=== PATIENT | female | born 1945 | race Caucasian/White ===

== ENCOUNTER 2017-09-22 12:43 | Inpatient (IN) | payer MEDICARE, MEDICAID ==
[~2017-09-22] VITALS: Ht 165.1 cm; Wt 59.4 kg
[~2017-09-22 12:43] MED LIST: ALBU8.5H8 IH; HYDR-3024 PO; HYDR12.5 PO; LISI40TA4 PO; PANT40TA2 PO; SUCR1ORA PO; sertraline PO
--- NOTE | 2017-09-22 12:49 | NUR ---
CALLED RETAIL COVERAGE MERCHANDISER LEAD FOR SITTER. SITTER WILL BE PROVIDED AT 1500. SISTER AT BEDSIDE FOR NOW.
[2017-09-22 13:33] LABS: BASOPHILS # (AUTO) 0.1 K/uL (0.0-8.0); BASOPHILS % (AUTO) 1.1 % (0.0-2.0); EOSINOPHILS # (AUTO) 0.1 K/uL (0.0-0.7); EOSINOPHILS % (AUTO) 0.5 % (0.0-7.0); HEMATOCRIT 39.9 % (31.2-41.9); HEMOGLOBIN 13.5 g/dL (10.9-14.3); LYMPHOCYTES # (AUTO) 1.6 K/uL (20.0-40.0); LYMPHOCYTES % (AUTO) 12.9 % (20.5-51.5); MEAN CORPUSCULAR HGB CONC 34 g/dL (32.3-35.6); MEAN CORPUSCULAR VOLUME 85.6 fL (75.5-95.3); MONOCYTES # (AUTO) 1.3 K/uL (2.0-10.0); MONOCYTES % (AUTO) 10.6 % (0.0-11.0); NEUTROPHILS # (AUTO) 9.4 K/uL (1.8-8.9); NEUTROPHILS % (AUTO) 74.9 % (38.5-71.5); PLATELET COUNT (AUTO) 480 K/uL (179-408); RED BLOOD CELL COUNT(AUTO) 4.66 MIL/uL (3.63-4.92); WHITE BLOOD COUNT (AUTO) 12.6 K/uL (3.8-11.8)
[2017-09-22 13:38] LABS: CARBON DIOXIDE 28 mmol/L (21-32); CHLORIDE 100 mmol/L (98-107); CREATININE 1.2 mg/dL (0.6-1.3); GLUCOSE 107 mg/dL (74-106); POTASSIUM 3.9 mmol/L (3.5-5.1); UREA NITROGEN, BLOOD 4 mg/dL (7-18)
[2017-09-22 13:39] LABS: *BLOOD, URINE NEGATIVE (NEGATIVE); *CLARITY,URINE CLOUDY (CLEAR); *COLOR,URINE DARK YELLOW (YELLOW); *KETONES,URINE TRACE (NEGATIVE); *PROTEIN,URINE 2+ (NEGATIVE); *UROBILINOGEN,URINE 0.2 E.U./dl (NORMAL); LEUKOCYTE ESTERASE ,URINE NEGATIVE (NEGATIVE); NITRITE, URINE NEGATIVE (NEGATIVE); PH,URINE 5.5 (5.0-8.0); UGLUCOSE NEGATIVE (NEGATIVE)
[2017-09-22 13:43] LABS: ACETAMINOPHEN < 2.0 ug/mL (10-30); ALANINE AMINOTRANSFERASE 15 U/L (14-59); ALKALINE PHOSPHATASE 125 U/L (50-136); ASPARTATE AMINOTRANSFERASE 20 U/L (15-37); BILIRUBIN,DIRECT 0.1 mg/dL (0.0-0.2); BILIRUBIN,TOTAL 0.3 mg/dL (0.2-1.0); TOTAL PROTEIN, SERUM 7.3 g/dL (6.4-8.2)
[2017-09-22 13:48] LABS: ETHANOL < 3 MG/DL (0-0)
[2017-09-22 13:55] LABS: *BILIRUBIN,URIN 2+ (NEGATIVE)
[2017-09-22 13:57] LABS: BACTERIA,URINE MANY /HPF (NONE SEEN); MUCUS,URINE FEW /LPF (0-FEW); RBC,URINE 0-3 /HPF (0-3); SQUAMOUS EPITHELIAL CELL,UR MANY /HPF (NONE SEEN)
[2017-09-22 14:04] LABS: *AMPHETAMINE, URINE NEGATIVE (NEGATIVE); *BARBITURATE, URINE NEGATIVE (NEGATIVE); *CANNABINOID, URINE NEGATIVE (NEGATIVE); *COCCAINE, URINE NEGATIVE (NEGATIVE); *OPIATE, URINE NEGATIVE (NEGATIVE); *PHENCYCLIDINE SCREEN,URINE NEGATIVE (NEGATIVE)
--- NOTE | 2017-09-22 14:42 | NUR ---
PT MEDICALLY CLEARED TALKED TO VELMA KEE OVER FOR PSYCH EVAL.
--- NOTE | 2017-09-22 15:06 | NUR ---
VELMA KEE AT BEDSIDE TO EVALUATE THE PT
[2017-09-22] MEDS ORDERED: FLUT1BLS IH (15:14)
[2017-09-22] MEDS ORDERED: LORA-258 PO (15:14)
[2017-09-22] MEDS ORDERED: PRED50TA PO (15:14)
[2017-09-22] MEDS ORDERED: METO25TA6 PO (15:14)
[2017-09-22] MEDS ORDERED: HYDR-3326 PO (15:14)
[2017-09-22] MEDS ORDERED: ACET325T53 PO (15:14)
[2017-09-22] MEDS ORDERED: FLUT1DIS28 IH (15:14)
[2017-09-22] MEDS ORDERED: ALBU8.5H8 IH (15:14)
[2017-09-22] MEDS ORDERED: BUPR150T10 PO (15:14)
[2017-09-22] MEDS ORDERED: LIDOCAINE HCL 1% 20 ML VIAL ONE (15:29)
[2017-09-22] MEDS ORDERED: CEFTRIAXONE 1 G VIAL ONE (15:29)
[2017-09-22 15:30] VITALS: BP 137/74
[2017-09-22] MEDS: CEFTRIAXONE 1 G VIAL IM SCH ×2 (15:30→15:36)
--- NOTE | 2017-09-22 15:34 | NUR ---
PT TRANSFERED TO MHU IN STABLE CONDITION.
[2017-09-22 16:04] VITALS: BP 137/74
[2017-09-22] MEDS ORDERED: LORAZEPAM 0.5 MG TABLET PO PRN (16:30)
[2017-09-22] MEDS ORDERED: ACETAMINOPHEN 325 MG TABLET PO PRN (16:30)
[2017-09-22] MEDS ORDERED: MAGNESIUM HYDROXIDE 30 ML LIQUID UDC PO PRN (16:30)
--- NOTE | 2017-09-22 17:50 | NUR ---
GPS/RN- DR POSEY NOTIFIED OF PATIENT HIGH RISK BEHAVIOR, LIVES ALONE MANAGES OWN CARE AND MEDICATIONS, PATIENT REQUIRES PLACEMENT FOR A SAFER DISCHARGE. Addendum: 09/22/17 at 1753 by GUILHERME RIZO RN Amended: Links added.
--- NOTE | 2017-09-22 19:22 | NUR ---
GPS/RN- ADMISSION NOTE Patient admitted for 5150 for Danger to Self, per 5150 patient made small lacs to left forearm and elbow and told staff at her [facility] outpatient program of her suicide gesture. patient acknowledges severe depression and wants treatment. Patient is alert and oriented to self, knows she is in a hospital, partially to time however patient is forgetful during assessment and history, patient lives alone and takes care of herself and medication management, patient verbalized suicide attempt but verbalized she will not hurt herself here, able to contract for safety able to verbalize needs and feelings. patient is unkept, presents depressed and elated, incongruent mood, superficial guarded. Verbalized depressed for a very long time, verbalized one suicide attempt prior, noted with healed scar on left wrist, patient unable to recall other facts, able to ambulate with a walker and supervision. patient not aggressive, denies any hallucinations. current smoker, Nicotene orders in place. Advised of 72 hour hold status and patient rights, family notified. Dr Grady and [facility] notified of patient admit. High risk for failure due to depression living alone and poor historian, recommend placement, psychiatrist aware.
[2017-09-22 19:30] VITALS: BP 139/76
[2017-09-22] MEDS: risperiDONE 0.25 MG TABLET PO SCH (21:08)
--- NOTE | 2017-09-22 22:00 | NUR ---
received to care, lying in bed, pleasant upon approach. denies si at this time. admitted to suicide attempt. agreed to let staff know if she feels like hurting her self. compliant with medications, and staff direction. as of 2199, she remains awake, in bed. seems slightly confused. forgot why she was admitted to the hospital. reality orientation/emotional support provided. no distress noted. will continue to monitor closely.
[2017-09-22] MEDS: TEMAZEPAM 7.5 MG CAPSULE PO PRN (22:59)
--- NOTE | 2017-09-22 22:59 | NUR ---
remains awake. PRN restoril, given for insomnia.
--- NOTE | 2017-09-22 23:40 | NUR ---
appears to be asleep. no distress noted.
--- NOTE | 2017-09-23 06:00 | NUR ---
slept 6.0 hours, total. continues to sleep. no distress noted.
[2017-09-23 08:00] VITALS: BP_SYST 109; BP_SYST 142; BP_DIAS 70; BP_DIAS 71
[2017-09-23] MEDS: ESCITALOPRAM OXALATE 10 MG TABLET PO SCH (09:12)
[2017-09-23] MEDS: NICOTINE 14 MG/24HR PATCH TD SCH (09:12)
--- NOTE | 2017-09-23 15:44 | NUR ---
Initial DC Plan: Patient currently lives home alone [[address] [address]; [phone]]. Patient's son Carl [[phone]] feels that patient should be living at home type of facility. SW will follow up with MD, patient, and patient's family to discuss most appropriate discharge plans. SW will form a safe and proper discharge.
--- NOTE | 2017-09-23 15:51 | NUR ---
Firearms Report: LUIS submitted Mental Health Report to [facility] on 09/23.
[2017-09-23 16:00] VITALS: BP 152/66
[2017-09-23] MEDS: CEPHALEXIN MONOHYDRATE 500 MG CAPSULE PO SCH ×2 (17:18→21:49)
[2017-09-23] MEDS: METOPROLOL TARTRATE 25 MG TABLET PO SCH (17:19)
--- NOTE | 2017-09-23 17:54 | NUR ---
Gps/Associate Merchandiser- Had late shower, ASSISTANT MEN'S SOCCER COACH assisting, occ. dry coughing noted. Ambulated with front wheel walker, showed how to use fww, tends to carry adaptive device. Had been cooperative with staff, pleasant affect, smiles on occ. Encouraged continued verbalizations of her needs and feeling.
[2017-09-23] MEDS: risperiDONE 0.25 MG TABLET PO SCH (20:18)
[2017-09-23 20:50] VITALS: BP 144/61
[2017-09-23] MEDS: TEMAZEPAM 7.5 MG CAPSULE PO PRN (21:50)
--- NOTE | 2017-09-23 22:00 | NUR ---
received to care, lying in bed, pleasant , but confused, and forgetful. denies SI, or desire to harm self. had to be reminded of the suicide attempt, as she forgot why she was here. believed she was in her bed, at home. frequent reality orientation provided, but remains forgetful. also believed she saw her cat, ambulating in the hallway, stating, " be careful you don't let my cat out the door". PRN restoril was given at 0, for insomnia. as of 2199, she remains awake, in bed, eating a snack. she asked "am i in the hospital ? boy, am i confused" no distress noted. will continue to monitor closely.
--- NOTE | 2017-09-23 23:00 | NUR ---
appears to be asleep. no distress noted.
--- NOTE | 2017-09-24 06:00 | NUR ---
slept 6.5 hours, total. continues to sleep. no distress noted.
[2017-09-24] MEDS: CEPHALEXIN MONOHYDRATE 500 MG CAPSULE PO SCH ×3 (06:34→21:17)
[2017-09-24 07:30] VITALS: BP 139/57
[2017-09-24] MEDS: predniSONE 50 MG TABLET PO SCH (08:12)
[2017-09-24] MEDS: ESCITALOPRAM OXALATE 10 MG TABLET PO SCH (08:12)
[2017-09-24] MEDS: METOPROLOL TARTRATE 25 MG TABLET PO SCH ×2 (08:14→16:40)
[2017-09-24] MEDS: NICOTINE 14 MG/24HR PATCH TD SCH (08:14)
[2017-09-24] MEDS: FLUTICASONE/VILANTEROL 1 EACH BLST.W.DEV IH SCH (08:31)
[2017-09-24] MEDS ORDERED: FLUTICASONE/SALMETEROL 250/50 INHALER IH SCH (09:00)
[2017-09-24 15:44] VITALS: BP 123/68
--- NOTE | 2017-09-24 17:53 | NUR ---
Gps/Senior Database Engineer- Noted confusion and disorientation , encouraged using front wheel walker when walking, safety reviewed and emphasized, kept removing her socks claimed too hot. Came out asking to smoke, informed patient and showed patient she has a nicotine patch on her left upper arm, and this is none smoking hospital, verbalized understanding .
[2017-09-24] MEDS: risperiDONE 0.25 MG TABLET PO SCH (20:29)
[2017-09-24 21:24] VITALS: BP 131/81
[2017-09-25] MEDS: CEPHALEXIN MONOHYDRATE 500 MG CAPSULE PO SCH ×3 (05:48→21:03)
--- NOTE | 2017-09-25 06:10 | NUR ---
GPS: Remain calm and cooperative with medications and care. ambulate to bathroom with steady gait. no agitation noted. pleasant upon approach.slept only 2 hrs through the night. restoril offered but patient stated i am fine. continue monitoring for safety.
[2017-09-25 07:30] VITALS: BP 147/58
[2017-09-25] MEDS: NICOTINE 14 MG/24HR PATCH TD SCH (09:13)
[2017-09-25] MEDS: predniSONE 50 MG TABLET PO SCH (09:13)
[2017-09-25] MEDS: METOPROLOL TARTRATE 25 MG TABLET PO SCH ×2 (09:13→17:00)
[2017-09-25] MEDS: ESCITALOPRAM OXALATE 10 MG TABLET PO SCH (09:13)
[2017-09-25] MEDS: FLUTICASONE/VILANTEROL 1 EACH BLST.W.DEV IH SCH (09:14)
[2017-09-25 17:05] VITALS: BP 102/63
[2017-09-25 20:00] VITALS: BP 111/51
--- NOTE | 2017-09-25 21:00 | NUR ---
RECEIVED PT AWAKE, ALERT, ORIENTEDX2. PT SHOWS NO SIGNS OF DISTRESS. PT ITCHY. GAVE WET TOWEL FOR HER TO EASE ITCHINESS ON HER RIGHT LEG. COOPERATIVE AND CALM . WILL CONTINUE TO MONITOR.
[2017-09-25] MEDS: risperiDONE 0.25 MG TABLET PO SCH (21:03)
[2017-09-26] MEDS: CEPHALEXIN MONOHYDRATE 500 MG CAPSULE PO SCH ×3 (06:14→21:01)
--- NOTE | 2017-09-26 06:43 | NUR ---
PT SLEPT THROUGHOUT THE SHIFT. PT SHOWS NO SIGNS OF DISTRESS. PT CALM AND COOPERATIVE. PT HAD NO SUICIDAL IDEATION. COMPLIANT WITH MEDICATIONS.SAFETY AND COMFORT PROVIDED. WILL ENDORSE TO DAYSHIFT NURSE.
[2017-09-26 07:10] LABS: *BILIRUBIN,URIN NEGATIVE (NEGATIVE); *BLOOD, URINE NEGATIVE (NEGATIVE); *CLARITY,URINE CLEAR (CLEAR); *COLOR,URINE YELLOW (YELLOW); *KETONES,URINE NEGATIVE (NEGATIVE); *PROTEIN,URINE NEGATIVE (NEGATIVE); *UROBILINOGEN,URINE 0.2 E.U./dl (NORMAL); LEUKOCYTE ESTERASE ,URINE NEGATIVE (NEGATIVE); NITRITE, URINE NEGATIVE (NEGATIVE); UGLUCOSE NEGATIVE (NEGATIVE)
[2017-09-26 07:30] VITALS: BP 146/57
[2017-09-26 07:31] LABS: BACTERIA,URINE NONE SEEN /HPF (NONE SEEN); RBC,URINE 0-3 /HPF (0-3); WBC,URINE 0-3 /HPF (0-3)
[2017-09-26 07:32] LABS: SQUAMOUS EPITHELIAL CELL,UR FEW /HPF (NONE SEEN)
[2017-09-26] MEDS: FLUTICASONE/VILANTEROL 1 EACH BLST.W.DEV IH SCH (09:18)
[2017-09-26] MEDS: METOPROLOL TARTRATE 25 MG TABLET PO SCH ×2 (09:19→16:56)
[2017-09-26] MEDS: predniSONE 50 MG TABLET PO SCH (09:19)
[2017-09-26] MEDS: ESCITALOPRAM OXALATE 10 MG TABLET PO SCH (09:19)
[2017-09-26] MEDS: NICOTINE 14 MG/24HR PATCH TD SCH (09:20)
[2017-09-26] MEDS: HYDROCODONE/APAP 5-325MG TABLET PO PRN (14:02)
[2017-09-26 15:27] VITALS: BP 147/50
[2017-09-26 20:00] VITALS: BP 136/54
--- NOTE | 2017-09-26 20:30 | NUR ---
RECEIVED PT AWAKE, ALERT, ORIENTEDX2. PT TRYING TO ASK FOR HER PURSE AND OTHER BELONGINGS. REITERATE THAT ITS IN A SAFE PLACE. PT SHOWS NO SIGNS OF DISTRESS. PT SAYING ITS TOO COLD. GAVE HER MORE BLANKET. REEDUCATE AND REITERATE TO PT TO USE HER WALKER WHEN WALKING. SAFETY PROVIDED. WILL CONTINUE TO MONITOR.
[2017-09-26] MEDS: risperiDONE 0.25 MG TABLET PO SCH (20:55)
[2017-09-26] MEDS: TEMAZEPAM 7.5 MG CAPSULE PO PRN (20:58)
--- NOTE | 2017-09-27 05:47 | NUR ---
PT SLEPT THROUGHOUT THE SHIFT. AT 0300H PT AWAKE BECAUSE SHE WENT TO THE BATHROOM. ASSISTED HER TO THE BATHROOM. PT WET HER BED. CHANGE THE LINEN AND HER GOWN. PT CRYING AND THANKING US FOR WHAT WE DID. PT SHOWS NO SIGNS OF DISTRESS. COMPLIANT WITH MEDICATION. SAFETY PROVIDED. WILL ENDORSE TO DAYSHIFT NURSE.
[2017-09-27] MEDS: CEPHALEXIN MONOHYDRATE 500 MG CAPSULE PO SCH ×3 (06:41→21:03)
[2017-09-27 07:30] VITALS: BP 143/54
[2017-09-27] MEDS: ESCITALOPRAM OXALATE 10 MG TABLET PO SCH (08:31)
[2017-09-27] MEDS: FLUTICASONE/VILANTEROL 1 EACH BLST.W.DEV IH SCH (08:31)
[2017-09-27] MEDS: METOPROLOL TARTRATE 25 MG TABLET PO SCH ×2 (08:32→16:39)
[2017-09-27] MEDS: NICOTINE 14 MG/24HR PATCH TD SCH (08:32)
[2017-09-27] MEDS: predniSONE 50 MG TABLET PO SCH (08:32)
[2017-09-27 16:30] VITALS: BP 138/55
[2017-09-27] MEDS: MAG HYDROX/AL HYDROX/SIMETH 30 ML LIQUID UDC PO PRN (18:51)
[2017-09-27 19:30] VITALS: BP 106/58
--- NOTE | 2017-09-27 20:00 | NUR ---
RECEIVED PATIENT IN HER ROOM IN BED, SHE IS NOTED AWAKE A/O X 1. ABLE TO AMBULATE WITH STEADY GAIT AND ABLE TO MAKE HER NEEDS KNOW. UPON INTERVIEW, PATIENT STATED, YES, I SOMETIME, HAVE SI, BUT WHEN I THINK OF MY FAMILY MY SON AND ALL THE PAIN I COULD CAUSED IF I DO SOMETHING TO ME, THEN I DON'T THINK ABOUT IT". PATIENT NOTED WITH LOW MOOD, FAIR INSIGHT INTO THE REASON FOR HIS ADMISSION TO MHU. SHE IS ABLE TO CFS. SAFETY WAS EMPHASIS. WILL CONTINUE TO MONITOR CLOSELY.
[2017-09-27] MEDS: risperiDONE 0.25 MG TABLET PO SCH (20:52)
[2017-09-28] MEDS: CEPHALEXIN MONOHYDRATE 500 MG CAPSULE PO SCH ×2 (06:19→14:05)
--- NOTE | 2017-09-28 06:53 | NUR ---
PATIENT SLEPT FOR APPROX 8.00 HRS THROUGH THE NIGHT. CONTINUE COMPLIANT WITH MEDICATION REGIMENT. ABLE TO CFS
[2017-09-28 07:20] LABS: EOSINOPHILS % (AUTO) 0.2 % (0.0-7.0); HEMOGLOBIN 11.9 g/dL (10.9-14.3)
[2017-09-28 07:30] VITALS: BP 146/62
[2017-09-28 07:30] LABS: BASOPHILS % (AUTO) 0.3 % (0.0-2.0); HEMATOCRIT 34.9 % (31.2-41.9); LYMPHOCYTES # (AUTO) 2.9 K/uL (20.0-40.0); LYMPHOCYTES % (AUTO) 17.4 % (20.5-51.5); MEAN CORPUSCULAR HEMOGLOBIN 29.3 uug (24.7-32.8); MEAN CORPUSCULAR HGB CONC 34 g/dL (32.3-35.6); MEAN CORPUSCULAR VOLUME 85.7 fL (75.5-95.3); MONOCYTES % (AUTO) 11.9 % (0.0-11.0); NEUTROPHILS # (AUTO) 11.8 K/uL (1.8-8.9); NEUTROPHILS % (AUTO) 70.2 % (38.5-71.5); PLATELET COUNT (AUTO) 373 K/uL (179-408); RED BLOOD CELL COUNT(AUTO) 4.07 MIL/uL (3.63-4.92)
[2017-09-28 07:32] LABS: CARBON DIOXIDE 31 mmol/L (21-32); CHLORIDE 100 mmol/L (98-107); GLUCOSE 64 mg/dL (74-106); PHOSPHOROUS 2.2 mg/dL (2.5-4.9); POTASSIUM 3.7 mmol/L (3.5-5.1); UREA NITROGEN, BLOOD 15 mg/dL (7-18)
[2017-09-28 07:36] LABS: WHITE BLOOD COUNT (AUTO) 16.9 K/uL (3.8-11.8)
[2017-09-28] MEDS: ESCITALOPRAM OXALATE 10 MG TABLET PO SCH (08:35)
[2017-09-28] MEDS: METOPROLOL TARTRATE 25 MG TABLET PO SCH ×2 (08:35→16:37)
[2017-09-28] MEDS: NICOTINE 14 MG/24HR PATCH TD SCH (08:35)
[2017-09-28] MEDS: predniSONE 50 MG TABLET PO SCH (08:37)
[2017-09-28] MEDS: FLUTICASONE/VILANTEROL 1 EACH BLST.W.DEV IH SCH (08:38)
[2017-09-28] MEDS ORDERED: NEUTRA PHOS PACKET PO ONE (15:30)
[2017-09-28 16:27] VITALS: BP 118/50
[2017-09-28 19:50] VITALS: BP 141/55
--- NOTE | 2017-09-28 19:50 | NUR ---
RECEIVED PATIENT IN HER ROOM SITTING IN BED EATING. SHE IS NOTED AWAKE A/O X 2. CONFUSED AT TIMES. SHE IS ABLE TO AMBULATE WITH STEADY GAIT AND ABLE TO MAKE HER NEEDS KNOW. UPON INTERVIEW, PATIENT STATED THAT HIS SON CAME TO VISIT AND HE NOW REALIZED THAT KILLING HERSELF COULD HAVE BEEN UPSET HIS SON AND CAUSED SO MUCH PAIN. SHE IS ABLE TO CFS. DENIES SI/AH/VA/HI. SAFETY WAS EMPHASIS. WILL CONTINUE TO MONITOR CLOSELY.
[2017-09-28] MEDS: risperiDONE 0.5 MG TABLET PO SCH (20:07)
[2017-09-28] MEDS ORDERED: risperiDONE 0.25 MG TABLET PO SCH (21:00)
--- NOTE | 2017-09-29 02:55 | NUR ---
PATIENT NOTED AWAKE STANDING UP NEXT TO HER BED, HER PANTS AND SOCKS WERE WET AND HER BED WAS ALSO WET. PATIENT NOTED MILDLY AGITATED AND CONFUSED, SHE STATED, "I SHOULD JUST , I SHOULD BE ". PATIENT WAS REASSURED, WAS TAKEN TO THE SHOWER. ATIVAN 0.5MG PO PRN WAS GIVEN AND WAS HELPED BACK TO BED. WILL CONTINUE TO MONITOR.
--- NOTE | 2017-09-29 04:00 | NUR ---
PATIENT NOTED SLEEPING COMFORTABLY IN HER BED. WILL CONTINUE TO MONITOR.
--- NOTE | 2017-09-29 06:58 | NUR ---
PATIENT SLEPT FOR APPROX 9.30 HRS THROUGH THE NIGHT. CONTINUE COMPLIANT WITH MEDICATION REGIMENT, DIET AND PLAN OF CARE. CONTINUE TO MONITOR CLOSELY.
[2017-09-29] MEDS: METOPROLOL TARTRATE 25 MG TABLET PO SCH ×2 (07:53→16:40)
[2017-09-29] MEDS: HYDROCODONE/APAP 5-325MG TABLET PO PRN (07:53)
[2017-09-29] MEDS: NICOTINE 14 MG/24HR PATCH TD SCH (07:53)
[2017-09-29] MEDS: ESCITALOPRAM OXALATE 10 MG TABLET PO SCH (07:53)
[2017-09-29] MEDS: FLUTICASONE/VILANTEROL 1 EACH BLST.W.DEV IH SCH (07:53)
[2017-09-29] MEDS: predniSONE 50 MG TABLET PO SCH (07:53)
[2017-09-29 08:00] VITALS: BP 172/73
[2017-09-29 10:55] VITALS: BP 135/52
[2017-09-29 16:00] VITALS: BP 117/52
[2017-09-29 20:18] VITALS: BP 155/65
[2017-09-29] MEDS: risperiDONE 0.5 MG TABLET PO SCH (20:29)
[2017-09-30 07:30] VITALS: BP 125/60
--- NOTE | 2017-09-30 07:30 | NUR ---
RECEIVED A 72 Y/O FEMALE PT, ALERT O X2. LYING IN BED, SEEMS TO BE CALM AND PLEASANT, WALKS WITH HELP, NEEDS FREQUENT REALITY ORIENTATION, DENIES SUICIDAL IDEAS.
[2017-09-30] MEDS: ESCITALOPRAM OXALATE 10 MG TABLET PO SCH (08:30)
[2017-09-30] MEDS: NICOTINE 14 MG/24HR PATCH TD SCH (08:30)
[2017-09-30] MEDS: METOPROLOL TARTRATE 25 MG TABLET PO SCH ×2 (08:30→17:39)
[2017-09-30] MEDS: FLUTICASONE/VILANTEROL 1 EACH BLST.W.DEV IH SCH (08:55)
[2017-09-30] MEDS: predniSONE 50 MG TABLET PO SCH (08:55)
--- NOTE | 2017-09-30 08:59 | NUR ---
PT RECEIVED BREAKFAST, GOOD APPETITE, WAS COMPLIANT WITH ALL HER DUE MEDICATIONS.
[2017-09-30 16:25] VITALS: BP 132/60
--- NOTE | 2017-09-30 19:26 | NUR ---
PT FULL REPORT GIVEN TO SYLVIA PSYCH
[2017-09-30] MEDS: risperiDONE 0.5 MG TABLET PO SCH (20:14)
[2017-09-30 21:21] VITALS: BP 134/60
[2017-10-01] MEDS: HYDROCODONE/APAP 5-325MG TABLET PO PRN (02:45)
--- NOTE | 2017-10-01 06:49 | NUR ---
GPS: REMAIN CALM AND COOPERATIVE WITH MEDICATIONS AND CARE. PAIN MEDICATION GIVEN X1 AND EFFECTIVE. INCONTINENT X1 LAST NIGHT. ASSISTED WITH ADL'S. PATIENT SLEPT FOR APPROX 5.30 HRS THROUGH THE NIGHT. CONTINUE COMPLIANT WITH MEDICATION REGIMENT, DIET AND PLAN OF CARE. CONTINUE TO MONITOR CLOSELY FOR SAFETY.
[2017-10-01 07:30] VITALS: BP 129/59
--- NOTE | 2017-10-01 07:43 | NUR ---
REPORT RECEIVED FROM ROSALINDA WARD.
[2017-10-01] MEDS: ESCITALOPRAM OXALATE 10 MG TABLET PO SCH (08:35)
[2017-10-01] MEDS: NICOTINE 14 MG/24HR PATCH TD SCH (08:36)
[2017-10-01] MEDS: METOPROLOL TARTRATE 25 MG TABLET PO SCH (08:36)
[2017-10-01] MEDS: predniSONE 50 MG TABLET PO SCH (08:36)
[2017-10-01] MEDS: FLUTICASONE/VILANTEROL 1 EACH BLST.W.DEV IH SCH (08:38)
[2017-10-01] MEDS: MAG HYDROX/AL HYDROX/SIMETH 30 ML LIQUID UDC PO PRN (08:49)
--- NOTE | 2017-10-01 09:08 | NUR ---
PATIENT IS IN ROOM RESTING. PATIENT APOLOGETIC THAT IS NOT PARTICIPATING IN THE DAY ROOM. STATES THAT SHE LIKES TO PARTICIPATE IN ACTIVITIES BUT SHE IS HAVING STOMACH DISCOMFORT. GIVEN PRN MEDICATION FOR UPSET STOMACH. TAKEN PATIENT TO BATHROOM USED WALKER PATIENT HAS UNSTEADY GAIT. PATIENT ALSO COMPLAINING OF BACK PAIN. PATIENT WEARING DIAPER WAS INCONTINENT OVER NIGHT.
--- NOTE | 2017-10-01 10:36 | NUR ---
DC Note: Patient will be discharged to [facility] [[address] [place] [address]; ] via private transportation. LUIS spoke with patient's son aCrl Weaver [[phone]] who stated he will transport patient to the facility. Patient is aware and agreeable to discharge plans. Patient denies SI and HI. LUIS spoke with Venkata at [facility] who confirmed they can accept patient at the facility today. Patient will follow up with Dr. Segundo (Dental Equipment Technician) and Dr. Grady (Psychiatrist) at the facility. Patient was provided smoking cessation referrals for [place] [employer] [id number]-[id number] and [employer] [phone].
--- NOTE | 2017-10-01 13:02 | NUR ---
Updated DC Note: Patient was going to be discharged to [facility] [[phone]]. However, patient's son Carl Weaver [[phone]] decided he would rather care for patient at home. Patient will be moving in with her son Carl [[address] [place] [address]]. Patient's son stated he will orange picking supervisor patient around 3pm today. Patient is aware and agreeable to discharge plans. Patient denies SI and HI, and is calm and cooperative. Patient will follow up with her electrical wirer Dr. Venkata Flanagan [[address], [place] [address]; ] and psychiatrist Dr. Grady [[address] [place] [address]; ]. Patient's son stated he will schedule an appointment with [facility] to resume IOP services for patient. Patient will follow up with her outpatient social services counselor Anat Arias LCSW at [facility] [ [place] [address]; [phone]]. Patient was provided with additional outpatient mental health resources to [facility] , Ariana Mauro , and the National Suicide Prevention Lifeline . LUIS arranged Home Health for patient through [facility] [[phone]]. LUIS spoke with Julio at [facility] who stated services will begin for patient on WednesdayOctober 04. The home health agency will contact patient's son to arrange a time. Patient was also provided caregiving referrals for [facility] [[phone]] and [facility] [[phone]]. Patient was also referred to placement agency [facility] [[phone]].
--- NOTE | 2017-10-01 14:37 | NUR ---
WAITING FOR ALEXANDER NICOLAS NP TO WRITE DISCHARGE PRESCRIPTIONS DUE TO CHANGE OF DISCHARGE. DISCHARGING HOME WITH SON.
[2017-10-01 15:43] VITALS: BP 112/49
--- NOTE | 2017-10-01 16:56 | NUR ---
SON CAME TO LEAD NURSE PATIENT. BOTH SON AND PATIENT WERE EXPLAINED THE DISCHARGE INSTRUCTIONS AND SIGNED. DISCHARGE INSTRUCTIONS WERE COPIED AND PLACED IN CHART. BELONGINGS WERE REVIEWED AND RETURNED TO PATIENT UPON DISCHARGED.
== END 2017-10-01 17:02 | disposition home or self-care (01) | DRG 885 ==
LOC: ER 12:47 → GPS 15:17
PROVIDERS: ADMIT Psychiatry & Neurology Psychiatry; ATTEND Nurse Practitioner Acute Care
DX: F33.3 Major depressive disorder, recurrent, severe with psychotic symptoms (principal); N39.0 Urinary tract infection, site not specified; E44.1 Mild protein-calorie malnutrition; E87.1 Hypo-osmolality and hyponatremia; F03.91 Unspecified dementia, unspecified severity, with behavioral disturbance; F41.9 Anxiety disorder, unspecified; J44.9 Chronic obstructive pulmonary disease, unspecified; E88.09 Other disorders of plasma-protein metabolism, not elsewhere classified; G89.29 Other chronic pain; J45.909 Unspecified asthma, uncomplicated; I10 Essential (primary) hypertension; E78.1 Pure hyperglyceridemia; D72.829 Elevated white blood cell count, unspecified; F29 Unspecified psychosis not due to a substance or known physiological condition; Z68.21 Body mass index [BMI] 21.0-21.9, adult; Z91.5 Personal history of self-harm
CPT/HCPCS: 36415; 71045; 80307; 83735; 84100; 85025; 87086; 93005; A4663; G0480; G0480-TC; J0696; J3490; J7512

== ENCOUNTER 2017-10-05 15:58 | Inpatient (IN) | payer MEDICARE, MEDICAID ==
[~2017-10-05] VITALS: Ht 157.5 cm; Wt 58.5 kg
[~2017-10-05 15:58] MED LIST changes: +FLUT1BLS IH; +FLUT1DIS28 IH; -HYDR-3024 PO; +HYDR-3326 PO; -HYDR12.5 PO; -LISI40TA4 PO; +METO25TA6 PO; -PANT40TA2 PO; +PRED50TA PO; -SUCR1ORA PO; -sertraline PO
[2017-10-05] MEDS ORDERED: KETOROLAC TROMETHAMINE 15 MG INJ IM ONE (16:30)
[2017-10-05] MEDS ORDERED: KETOROLAC TROMETHAMINE 15 MG INJ ONE (16:37)
[2017-10-05 16:40] LABS: BASOPHILS # (AUTO) 0.2 K/uL (0.0-8.0); BASOPHILS % (AUTO) 0.7 % (0.0-2.0); EOSINOPHILS # (AUTO) 0.1 K/uL (0.0-0.7); EOSINOPHILS % (AUTO) 0.4 % (0.0-7.0); HEMATOCRIT 37.4 % (31.2-41.9); HEMOGLOBIN 12.5 g/dL (10.9-14.3); LYMPHOCYTES # (AUTO) 0.9 K/uL (20.0-40.0); LYMPHOCYTES % (AUTO) 4.1 % (20.5-51.5); MEAN CORPUSCULAR HGB CONC 34 g/dL (32.3-35.6); MEAN CORPUSCULAR VOLUME 86.6 fL (75.5-95.3); MONOCYTES # (AUTO) 1.1 K/uL (2.0-10.0); MONOCYTES % (AUTO) 4.9 % (0.0-11.0); NEUTROPHILS # (AUTO) 19.9 K/uL (1.8-8.9); NEUTROPHILS % (AUTO) 89.9 % (38.5-71.5); PLATELET COUNT (AUTO) 307 K/uL (179-408); RED BLOOD CELL COUNT(AUTO) 4.32 MIL/uL (3.63-4.92); WHITE BLOOD COUNT (AUTO) 22.1 K/uL (3.8-11.8)
[2017-10-05 17:01] LABS: CARBON DIOXIDE 29 mmol/L (21-32); CHLORIDE 99 mmol/L (98-107); GLUCOSE 109 mg/dL (74-106); POTASSIUM 5.3 mmol/L (3.5-5.1); UREA NITROGEN, BLOOD 11 mg/dL (7-18)
[2017-10-05 17:03] LABS: ETHANOL < 3 MG/DL (0-0)
[2017-10-05 17:07] LABS: ALANINE AMINOTRANSFERASE 24 U/L (14-59); ALKALINE PHOSPHATASE 76 U/L (50-136); ASPARTATE AMINOTRANSFERASE 11 U/L (15-37); BILIRUBIN,DIRECT 0.2 mg/dL (0.0-0.2); BILIRUBIN,TOTAL 0.8 mg/dL (0.2-1.0); TOTAL PROTEIN, SERUM 6.8 g/dL (6.4-8.2)
[2017-10-05 17:15] LABS: ACETAMINOPHEN < 2.0 ug/mL (10-30)
[2017-10-05 17:24] LABS: *BILIRUBIN,URIN NEGATIVE (NEGATIVE); *BLOOD, URINE Trace-intact (NEGATIVE); *CLARITY,URINE SLIGHTLY CLOUDY (CLEAR); *COLOR,URINE YELLOW (YELLOW); *KETONES,URINE NEGATIVE (NEGATIVE); *PROTEIN,URINE 1+ (NEGATIVE); LEUKOCYTE ESTERASE ,URINE NEGATIVE (NEGATIVE); NITRITE, URINE NEGATIVE (NEGATIVE); UGLUCOSE NEGATIVE (NEGATIVE)
[2017-10-05 17:42] LABS: BACTERIA,URINE NONE SEEN /HPF (NONE SEEN); RBC,URINE 0-3 /HPF (0-3); SQUAMOUS EPITHELIAL CELL,UR FEW /HPF (NONE SEEN); WBC,URINE 0-3 /HPF (0-3)
--- NOTE | 2017-10-05 18:02 | NUR ---
Dinner tray is at bedside.
--- NOTE | 2017-10-05 19:09 | NUR ---
still for MHU transfer, Олег Denney is preparing the psych HOLD, SBAR to MARY BETH Crockett accordingly
[2017-10-05 19:18] LABS: *AMPHETAMINE, URINE NEGATIVE (NEGATIVE); *BARBITURATE, URINE NEGATIVE (NEGATIVE); *CANNABINOID, URINE NEGATIVE (NEGATIVE); *COCCAINE, URINE NEGATIVE (NEGATIVE); *OPIATE, URINE NEGATIVE (NEGATIVE); *PHENCYCLIDINE SCREEN,URINE NEGATIVE (NEGATIVE)
--- NOTE | 2017-10-05 19:46 | NUR ---
REPORT GIVEN TO U NURSE, MARY BETH JUDGE
--- NOTE | 2017-10-05 20:00 | NUR ---
Pt. admitted to MHU, under care of Dr. VELEZ/JOO Belongs List completed
[2017-10-05] MEDS ORDERED: TEMAZEPAM 7.5 MG CAPSULE PO PRN (20:15)
[2017-10-05] MEDS ORDERED: MAG HYDROX/AL HYDROX/SIMETH 30 ML LIQUID UDC PO PRN (20:15)
[2017-10-05] MEDS ORDERED: ACETAMINOPHEN 325 MG TABLET PO PRN (20:15)
[2017-10-05] MEDS ORDERED: MAGNESIUM HYDROXIDE 30 ML LIQUID UDC PO PRN (20:15)
[2017-10-05] MEDS ORDERED: LORAZEPAM 0.5 MG TABLET PO PRN (20:15)
[2017-10-05 20:38] VITALS: BP 139/62
--- NOTE | 2017-10-05 22:00 | NUR ---
received to care, at 1999, from the emergency room, on a 72 hour hold hor danger to self, brought in from home, by her sister. according to the hold, she made suicidal statements to her sister, alluding to a plan to overdose on "pills". pt was admitted for a previous failed suicide attempt, in which she cut her forearm, on 09/22/17. upon arrival, she was confused. denied SI, but admitted to being "very depressed" assisted to bed at 2129. as of 2199, she remains awake. no distress noted.
[2017-10-05] MEDS ORDERED: ALBUTEROL SULFATE 8 GM HFA.AER.AD IH PRN (22:45)
[2017-10-05] MEDS ORDERED: HYDROCODONE/APAP 5-325MG TABLET PO PRN (22:45)
--- NOTE | 2017-10-05 23:33 | NUR ---
PRN restoril, given for insomnia
--- NOTE | 2017-10-06 00:10 | NUR ---
appears to be asleep. no distress noted.
--- NOTE | 2017-10-06 06:00 | NUR ---
slept 6.0 hours total. assited with am care, and shower. currently up in noah chair. no distress noted.
[2017-10-06 07:30] VITALS: BP 136/66
[2017-10-06] MEDS ORDERED: predniSONE 20 MG TABLET PO SCH (08:00)
[2017-10-06] MEDS ORDERED: ALBUTEROL SULFATE 2.5 MG/3 ML NEBU NEB PRN (08:45)
[2017-10-06] MEDS ORDERED: FLUTICASONE/SALMETEROL 250/50 INHALER IH SCH (09:00)
[2017-10-06] MEDS ORDERED: FLUTICASONE/VILANTEROL 1 EACH BLST.W.DEV INH SCH (09:00)
[2017-10-06] MEDS: METOPROLOL TARTRATE 25 MG TABLET PO SCH ×2 (09:35→16:48)
[2017-10-06 15:47] VITALS: BP 121/40
[2017-10-06] MEDS ORDERED: ESCITALOPRAM OXALATE 10 MG TABLET PO SCH (17:30)
[2017-10-06 18:34] LABS: BASOPHILS % (AUTO) 0.1 % (0.0-2.0); EOSINOPHILS % (AUTO) 0.1 % (0.0-7.0); HEMOGLOBIN 11.4 g/dL (10.9-14.3); LYMPHOCYTES # (AUTO) 0.8 K/uL (20.0-40.0); LYMPHOCYTES % (AUTO) 4.6 % (20.5-51.5); MEAN CORPUSCULAR HEMOGLOBIN 29.3 uug (24.7-32.8); MEAN CORPUSCULAR HGB CONC 34 g/dL (32.3-35.6); MEAN CORPUSCULAR VOLUME 87.2 fL (75.5-95.3); MONOCYTES # (AUTO) 0.7 K/uL (2.0-10.0); MONOCYTES % (AUTO) 4.3 % (0.0-11.0); NEUTROPHILS # (AUTO) 15.7 K/uL (1.8-8.9); NEUTROPHILS % (AUTO) 90.9 % (38.5-71.5); PLATELET COUNT (AUTO) 299 K/uL (179-408); WHITE BLOOD COUNT (AUTO) 17.2 K/uL (3.8-11.8)
[2017-10-06 18:42] LABS: CARBON DIOXIDE 29 mmol/L (21-32); CHLORIDE 96 mmol/L (98-107); CREATININE 1.2 mg/dL (0.6-1.3); GLUCOSE 110 mg/dL (74-106); POTASSIUM 4.7 mmol/L (3.5-5.1); UREA NITROGEN, BLOOD 27 mg/dL (7-18)
--- NOTE | 2017-10-06 18:56 | NUR ---
GPS./RN- received call from Lab for Critical Lab value lactic acid for 2.9 from Jesi, read lab back. contacted Klaus ALVAREZ., repeated lab value back, no orders received at this time, physician to place orders.
[2017-10-06] MEDS ORDERED: IV NS 1000 ML 1,000 ML IV ONE (19:00)
--- NOTE | 2017-10-06 19:23 | NUR ---
GPS/RN- received call from XANDER Bermeo, patient to be discharged admit to medical floor. admit to medical floor. DX : Sepsis. orders read back. patient to continue on 72 hour hold.
[2017-10-06] MEDS ORDERED: PIPERACILLIN/TAZOBACTAM/D5W 50 ML IV SCH (19:30)
--- NOTE | 2017-10-06 19:46 | NUR ---
GPS/RN- DR PYLE NOTIFIED OF PATIENT HE SEEN PATIENT TODAY ON ROUNDING, PATIENT TO CONTINUE ON HOLD AND CURRENT PSYCH MEDS.
[2017-10-06 20:14] VITALS: BP 131/71
[2017-10-06] MEDS ORDERED: risperiDONE 0.5 MG TABLET PO SCH (21:00)
[2017-10-06] MEDS ORDERED: risperiDONE 0.25 MG TABLET PO SCH (21:00)
--- NOTE | 2017-10-06 21:00 | NUR ---
PT WAS TAKEN TO MED SURG ROOM 209 IN STABLE CONDITION WITH ALL HER BELONGINGS IN STABLE CONDITION, REPORT WAS GIVEN TO MARY BETH NEGRETE. DISCHARGE D/C SEPSIS.
[2017-10-06] MEDS ORDERED: ALBU2.5V38 NEB (22:01)
[2017-10-06] MEDS ORDERED: PRED20TA PO (22:01)
[2017-10-06] MEDS ORDERED: ACET-2154 PO (22:01)
[2017-10-06] MEDS ORDERED: LORA-258 PO (22:01)
[2017-10-06] MEDS ORDERED: LORA1TAB GT (22:01)
[2017-10-06] MEDS ORDERED: TEMA7.5C PO (22:01)
[2017-10-06] MEDS ORDERED: RISP0.5T20 PO (22:01)
[2017-10-06] MEDS ORDERED: PIPE3.379 IV (22:01)
[2017-10-06] MEDS ORDERED: MAGN400O6 PO (22:01)
[2017-10-06] MEDS ORDERED: ESCI10TA55 PO (22:01)
[2017-10-06] MEDS ORDERED: MAG355OR18 PO (22:13)
== END 2017-10-06 21:08 | disposition short-term general hospital (02) | DRG 885 ==
LOC: ER 16:00 → GPS 19:27
PROVIDERS: ADMIT Psychiatry & Neurology Psychiatry; ATTEND Nurse Practitioner Acute Care
DX: F33.3 Major depressive disorder, recurrent, severe with psychotic symptoms (principal); N17.0 Acute kidney failure with tubular necrosis; A41.9 Sepsis, unspecified organism; F03.91 Unspecified dementia, unspecified severity, with behavioral disturbance; E87.1 Hypo-osmolality and hyponatremia; E87.2 Acidosis; F10.21 Alcohol dependence, in remission; J44.9 Chronic obstructive pulmonary disease, unspecified; Z79.899 Other long term (current) drug therapy; G89.29 Other chronic pain; M54.9 Dorsalgia, unspecified; E86.1 Hypovolemia; Z79.51 Long term (current) use of inhaled steroids; I10 Essential (primary) hypertension; E78.5 Hyperlipidemia, unspecified; E87.5 Hyperkalemia; F41.9 Anxiety disorder, unspecified; Z87.11 Personal history of peptic ulcer disease; R10.84 Generalized abdominal pain
CPT/HCPCS: 36415; 71045; 72131; 80307; 83605; 84146; 85025; 87040; 93005; A4663; C1758; G0480; G0480-TC; J1885; J3535; J7030; J7512

== ENCOUNTER 2017-10-06 20:25 | Inpatient (IN) | payer MEDICARE, MEDICAID ==
[~2017-10-06] VITALS: Ht 157.5 cm; Wt 60.4 kg
[2017-10-06 22:00] VITALS: BP 128/66
[2017-10-06] MEDS ORDERED: ALBU2.5V38 NEB (22:01)
[2017-10-06] MEDS ORDERED: LORA1TAB GT (22:01)
[2017-10-06] MEDS ORDERED: MAGN400O6 PO (22:01)
[2017-10-06] MEDS ORDERED: TEMA7.5C PO (22:01)
[2017-10-06] MEDS ORDERED: LORA-258 PO (22:01)
[2017-10-06] MEDS ORDERED: RISP0.5T20 PO (22:01)
[2017-10-06] MEDS ORDERED: PIPE3.379 IV (22:01)
[2017-10-06] MEDS ORDERED: ACET-2154 PO (22:01)
[2017-10-06] MEDS ORDERED: PRED20TA PO (22:01)
[2017-10-06] MEDS ORDERED: ESCI10TA55 PO (22:01)
[2017-10-06] MEDS ORDERED: MAG355OR18 PO (22:13)
[2017-10-06] MEDS ORDERED: MAGNESIUM HYDROXIDE 30 ML LIQUID UDC PO PRN (23:00)
[2017-10-06] MEDS ORDERED: TEMAZEPAM 7.5 MG CAPSULE PO PRN (23:00)
[2017-10-06] MEDS ORDERED: ACETAMINOPHEN 325 MG TABLET PO PRN (23:00)
[2017-10-06] MEDS ORDERED: ALBUTEROL SULFATE 2.5 MG/3 ML NEBU NEB PRN (23:00)
[2017-10-06] MEDS ORDERED: LORAZEPAM 0.5 MG TABLET PO PRN (23:00)
[2017-10-06] MEDS ORDERED: PIPERACILLIN SODIUM/TAZO 3.375 GM VIAL ONE (23:37)
[2017-10-07] MEDS ORDERED: MAG HYDROX/AL HYDROX/SIMETH 30 ML LIQUID UDC PO PRN
[2017-10-07 00:01] VITALS: BP 144/63
[2017-10-07] MEDS: HYDROCODONE/APAP 5-325MG TABLET PO PRN (02:44)
[2017-10-07 04:00] VITALS: BP 120/50
[2017-10-07] MEDS: PIPERACILLIN/TAZO/D5W 3.375 GM FROZEN IV SCH ×2 (05:46)
[2017-10-07] MEDS: risperiDONE 0.5 MG TABLET PO SCH ×2 (08:17→23:09)
[2017-10-07] MEDS: predniSONE 20 MG TABLET PO SCH (08:17)
[2017-10-07] MEDS: ESCITALOPRAM OXALATE 10 MG TABLET PO SCH (08:17)
[2017-10-07] MEDS: METOPROLOL TARTRATE 25 MG TABLET PO SCH ×2 (08:23→17:10)
[2017-10-07] MEDS: IV NS 1000 ML 1,000 ML IV PRN (08:29)
[2017-10-07] MEDS: FLUTICASONE/VILANTEROL 1 EACH BLST.W.DEV IH SCH (08:50)
[2017-10-07 09:09] LABS: BASOPHILS # (AUTO) 0.1 K/uL (0.0-8.0); BASOPHILS % (AUTO) 0.6 % (0.0-2.0); EOSINOPHILS # (AUTO) 0.1 K/uL (0.0-0.7); EOSINOPHILS % (AUTO) 0.5 % (0.0-7.0); HEMATOCRIT 33.5 % (31.2-41.9); HEMOGLOBIN 11.5 g/dL (10.9-14.3); LYMPHOCYTES # (AUTO) 2.5 K/uL (20.0-40.0); LYMPHOCYTES % (AUTO) 15.5 % (20.5-51.5); MEAN CORPUSCULAR HEMOGLOBIN 29.6 uug (24.7-32.8); MEAN CORPUSCULAR HGB CONC 34 g/dL (32.3-35.6); MEAN CORPUSCULAR VOLUME 86.1 fL (75.5-95.3); MONOCYTES # (AUTO) 1.1 K/uL (2.0-10.0); MONOCYTES % (AUTO) 6.8 % (0.0-11.0); NEUTROPHILS # (AUTO) 12.4 K/uL (1.8-8.9); NEUTROPHILS % (AUTO) 76.6 % (38.5-71.5); PLATELET COUNT (AUTO) 280 K/uL (179-408); RED BLOOD CELL COUNT(AUTO) 3.89 MIL/uL (3.63-4.92); WHITE BLOOD COUNT (AUTO) 16.2 K/uL (3.8-11.8)
[2017-10-07 09:26] LABS: ALANINE AMINOTRANSFERASE 20 U/L (14-59); ALKALINE PHOSPHATASE 60 U/L (50-136); ASPARTATE AMINOTRANSFERASE 11 U/L (15-37); BILIRUBIN,TOTAL 0.4 mg/dL (0.2-1.0); CARBON DIOXIDE 27 mmol/L (21-32); CHLORIDE 100 mmol/L (98-107); CREATININE 1.1 mg/dL (0.6-1.3); GLUCOSE 107 mg/dL (74-106); POTASSIUM 3.7 mmol/L (3.5-5.1); TOTAL PROTEIN, SERUM 6.3 g/dL (6.4-8.2); UREA NITROGEN, BLOOD 22 mg/dL (7-18)
[2017-10-07 11:04] VITALS: BP 123/53
[2017-10-07] MEDS ORDERED: PIPERACILLIN/TAZOBACTAM/D5W 50 ML IV SCH (12:00)
[2017-10-07 16:06] VITALS: BP 105/45
[2017-10-07] MEDS: PIPERACILLIN/TAZOBACTAM/D5W 2.25 G in PREMIXED 1 EACH IV SCH (17:09)
[2017-10-07] MEDS ORDERED: Z GUARD REMEDY PASTE 57 GM TUBE TOP PRN (18:15)
[2017-10-07 19:44] LABS: *BILIRUBIN,URIN NEGATIVE (NEGATIVE); *BLOOD, URINE Trace-intact (NEGATIVE); *CLARITY,URINE CLEAR (CLEAR); *COLOR,URINE LIGHT YELLOW (YELLOW); *KETONES,URINE NEGATIVE (NEGATIVE); *PROTEIN,URINE NEGATIVE (NEGATIVE); *UROBILINOGEN,URINE 0.2 E.U./dl (NORMAL); LEUKOCYTE ESTERASE ,URINE NEGATIVE (NEGATIVE); NITRITE, URINE NEGATIVE (NEGATIVE); PH,URINE 5.5 (5.0-8.0); UGLUCOSE NEGATIVE (NEGATIVE)
[2017-10-07 20:00] VITALS: BP 128/62
[2017-10-07 20:26] LABS: MUCUS,URINE FEW /LPF (0-FEW); RBC,URINE 0-3 /HPF (0-3); SQUAMOUS EPITHELIAL CELL,UR FEW /HPF (NONE SEEN); WBC,URINE 0-3 /HPF (0-3)
[2017-10-07] MEDS: Z GUARD REMEDY PASTE 57 GM TUBE TOP SCH (23:12)
[2017-10-08] VITALS: BP 110/60
[2017-10-08] MEDS: PIPERACILLIN/TAZOBACTAM/D5W 2.25 G in PREMIXED 1 EACH IV SCH ×4 (00:26→18:32)
[2017-10-08] MEDS: IV NS 1000 ML 1,000 ML IV PRN ×2 (03:59→23:07)
[2017-10-08 04:00] VITALS: BP 122/71
[2017-10-08 06:04] LABS: BASOPHILS # (AUTO) 0.1 K/uL (0.0-8.0); BASOPHILS % (AUTO) 0.5 % (0.0-2.0); EOSINOPHILS % (AUTO) 0.3 % (0.0-7.0); HEMATOCRIT 31.7 % (31.2-41.9); HEMOGLOBIN 10.9 g/dL (10.9-14.3); LYMPHOCYTES # (AUTO) 2.1 K/uL (20.0-40.0); LYMPHOCYTES % (AUTO) 14.3 % (20.5-51.5); MEAN CORPUSCULAR HEMOGLOBIN 29.6 uug (24.7-32.8); MEAN CORPUSCULAR HGB CONC 34 g/dL (32.3-35.6); MEAN CORPUSCULAR VOLUME 86.1 fL (75.5-95.3); MONOCYTES # (AUTO) 1.3 K/uL (2.0-10.0); MONOCYTES % (AUTO) 8.8 % (0.0-11.0); NEUTROPHILS # (AUTO) 11.3 K/uL (1.8-8.9); NEUTROPHILS % (AUTO) 76.1 % (38.5-71.5); PLATELET COUNT (AUTO) 287 K/uL (179-408); RED BLOOD CELL COUNT(AUTO) 3.69 MIL/uL (3.63-4.92); WHITE BLOOD COUNT (AUTO) 14.8 K/uL (3.8-11.8)
[2017-10-08 06:06] LABS: CARBON DIOXIDE 26 mmol/L (21-32); CHLORIDE 102 mmol/L (98-107); GLUCOSE 73 mg/dL (74-106); POTASSIUM 3.9 mmol/L (3.5-5.1); UREA NITROGEN, BLOOD 17 mg/dL (7-18)
[2017-10-08] MEDS: risperiDONE 0.5 MG TABLET PO SCH ×2 (09:15→20:15)
[2017-10-08] MEDS: FLUTICASONE/VILANTEROL 1 EACH BLST.W.DEV IH SCH (09:15)
[2017-10-08] MEDS: ESCITALOPRAM OXALATE 10 MG TABLET PO SCH (09:15)
[2017-10-08] MEDS: Z GUARD REMEDY PASTE 57 GM TUBE TOP SCH ×2 (09:15→20:15)
[2017-10-08] MEDS: predniSONE 20 MG TABLET PO SCH (09:15)
[2017-10-08 09:22] VITALS: BP 173/69
[2017-10-08] MEDS: METOPROLOL TARTRATE 25 MG TABLET PO SCH ×2 (09:22→18:32)
[2017-10-08 11:05] VITALS: BP 128/52
[2017-10-08 15:18] VITALS: BP 134/50
[2017-10-08 20:00] VITALS: BP 146/62
[2017-10-09] MEDS: PIPERACILLIN/TAZOBACTAM/D5W 2.25 G in PREMIXED 1 EACH IV SCH ×5 (00:36→23:20)
[2017-10-09 05:30] VITALS: BP 141/56
[2017-10-09] MEDS: risperiDONE 0.5 MG TABLET PO SCH ×2 (09:08→20:22)
[2017-10-09] MEDS: predniSONE 20 MG TABLET PO SCH (09:08)
[2017-10-09] MEDS: ESCITALOPRAM OXALATE 10 MG TABLET PO SCH (09:08)
[2017-10-09] MEDS: Z GUARD REMEDY PASTE 57 GM TUBE TOP SCH ×2 (09:09→20:22)
[2017-10-09] MEDS: METOPROLOL TARTRATE 25 MG TABLET PO SCH ×2 (09:11→16:55)
[2017-10-09] MEDS: FLUTICASONE/VILANTEROL 1 EACH BLST.W.DEV IH SCH (09:12)
[2017-10-09 11:15] VITALS: BP 163/62
[2017-10-09 12:36] LABS: BASOPHILS # (AUTO) 0.1 K/uL (0.0-8.0); BASOPHILS % (AUTO) 0.5 % (0.0-2.0); EOSINOPHILS % (AUTO) 0.1 % (0.0-7.0); HEMATOCRIT 33.4 % (31.2-41.9); HEMOGLOBIN 11.1 g/dL (10.9-14.3); LYMPHOCYTES # (AUTO) 0.9 K/uL (20.0-40.0); LYMPHOCYTES % (AUTO) 3.8 % (20.5-51.5); MEAN CORPUSCULAR HEMOGLOBIN 28.8 uug (24.7-32.8); MEAN CORPUSCULAR HGB CONC 33 g/dL (32.3-35.6); MEAN CORPUSCULAR VOLUME 86.3 fL (75.5-95.3); MONOCYTES # (AUTO) 1.7 K/uL (2.0-10.0); MONOCYTES % (AUTO) 7.2 % (0.0-11.0); NEUTROPHILS # (AUTO) 21.5 K/uL (1.8-8.9); NEUTROPHILS % (AUTO) 88.4 % (38.5-71.5); PLATELET COUNT (AUTO) 337 K/uL (179-408); RED BLOOD CELL COUNT(AUTO) 3.87 MIL/uL (3.63-4.92); WHITE BLOOD COUNT (AUTO) 24.3 K/uL (3.8-11.8)
[2017-10-09 12:54] LABS: ALANINE AMINOTRANSFERASE 20 U/L (14-59); ALKALINE PHOSPHATASE 60 U/L (50-136); ASPARTATE AMINOTRANSFERASE 11 U/L (15-37); BILIRUBIN,DIRECT 0.1 mg/dL (0.0-0.2); BILIRUBIN,TOTAL 0.3 mg/dL (0.2-1.0); CARBON DIOXIDE 27 mmol/L (21-32); CHLORIDE 102 mmol/L (98-107); CREATININE 1.1 mg/dL (0.6-1.3); GLUCOSE 107 mg/dL (74-106); POTASSIUM 3.6 mmol/L (3.5-5.1); TOTAL PROTEIN, SERUM 6.4 g/dL (6.4-8.2); UREA NITROGEN, BLOOD 11 mg/dL (7-18)
[2017-10-09] MEDS: IV NS 1000 ML 1,000 ML IV PRN (15:02)
[2017-10-09 16:00] VITALS: BP 158/70
[2017-10-09] MEDS: HYDROCODONE/APAP 5-325MG TABLET PO PRN (20:28)
[2017-10-09 20:30] VITALS: BP 144/52
[2017-10-10] MEDS: PIPERACILLIN/TAZOBACTAM/D5W 2.25 G in PREMIXED 1 EACH IV SCH ×4 (05:09→23:04)
[2017-10-10] MEDS: IV NS 1000 ML 1,000 ML IV PRN ×2 (06:21→20:45)
[2017-10-10 06:26] VITALS: BP 160/64
[2017-10-10 06:52] LABS: CARBON DIOXIDE 26 mmol/L (21-32); CHLORIDE 105 mmol/L (98-107); GLUCOSE 64 mg/dL (74-106); POTASSIUM 3.6 mmol/L (3.5-5.1); UREA NITROGEN, BLOOD 8 mg/dL (7-18)
[2017-10-10 07:02] LABS: BASOPHILS % (AUTO) 0.2 % (0.0-2.0); EOSINOPHILS % (AUTO) 0.3 % (0.0-7.0); HEMOGLOBIN 11.2 g/dL (10.9-14.3); LYMPHOCYTES % (AUTO) 14.3 % (20.5-51.5); MEAN CORPUSCULAR HEMOGLOBIN 29.3 uug (24.7-32.8); MEAN CORPUSCULAR HGB CONC 34 g/dL (32.3-35.6); MEAN CORPUSCULAR VOLUME 86.4 fL (75.5-95.3); MONOCYTES # (AUTO) 1.5 K/uL (2.0-10.0); MONOCYTES % (AUTO) 11.1 % (0.0-11.0); NEUTROPHILS # (AUTO) 10.3 K/uL (1.8-8.9); NEUTROPHILS % (AUTO) 74.1 % (38.5-71.5); PLATELET COUNT (AUTO) 344 K/uL (179-408); RED BLOOD CELL COUNT(AUTO) 3.82 MIL/uL (3.63-4.92); WHITE BLOOD COUNT (AUTO) 13.9 K/uL (3.8-11.8)
[2017-10-10] MEDS: Z GUARD REMEDY PASTE 57 GM TUBE TOP SCH ×2 (09:00→20:44)
[2017-10-10] MEDS: FLUTICASONE/VILANTEROL 1 EACH BLST.W.DEV IH SCH (09:38)
[2017-10-10] MEDS: ESCITALOPRAM OXALATE 10 MG TABLET PO SCH (09:39)
[2017-10-10] MEDS: predniSONE 20 MG TABLET PO SCH (09:39)
[2017-10-10] MEDS: METOPROLOL TARTRATE 25 MG TABLET PO SCH ×2 (09:39→17:51)
[2017-10-10] MEDS: risperiDONE 0.5 MG TABLET PO SCH ×2 (09:40→20:44)
[2017-10-10 11:28] LABS: BILIRUBIN,DIRECT 0.1 mg/dL (0.0-0.2); BILIRUBIN,TOTAL 0.3 mg/dL (0.2-1.0); TOTAL PROTEIN, SERUM 6.2 g/dL (6.4-8.2)
[2017-10-10 11:38] VITALS: BP 153/64
[2017-10-10 15:21] VITALS: BP 154/52
[2017-10-10 15:43] VITALS: BP_SYST 139; BP_SYST 153; BP_SYST 162; BP_DIAS 64; BP_DIAS 65
[2017-10-10 20:00] VITALS: BP 157/69
[2017-10-10] MEDS ORDERED: METRONIDAZOLE 500 MG/NS 100ML 200 ML IV ONE (20:06)
[2017-10-10] MEDS: METRONIDAZOLE 500 MG/NS 100ML 500 MG in PREMIXED 1 EACH IV SCH (21:18)
[2017-10-11 04:00] VITALS: BP 148/61
[2017-10-11] MEDS: PIPERACILLIN/TAZOBACTAM/D5W 2.25 G in PREMIXED 1 EACH IV SCH ×3 (05:01→18:00)
[2017-10-11] MEDS: METRONIDAZOLE 500 MG/NS 100ML 500 MG in PREMIXED 1 EACH IV SCH ×2 (05:36→13:39)
[2017-10-11 06:50] LABS: BASOPHILS # (AUTO) 0.1 K/uL (0.0-8.0); BASOPHILS % (AUTO) 0.3 % (0.0-2.0); EOSINOPHILS # (AUTO) 0.1 K/uL (0.0-0.7); EOSINOPHILS % (AUTO) 0.4 % (0.0-7.0); HEMATOCRIT 35.6 % (31.2-41.9); HEMOGLOBIN 12.1 g/dL (10.9-14.3); LYMPHOCYTES # (AUTO) 2.1 K/uL (20.0-40.0); MEAN CORPUSCULAR HEMOGLOBIN 29.1 uug (24.7-32.8); MEAN CORPUSCULAR HGB CONC 34 g/dL (32.3-35.6); MEAN CORPUSCULAR VOLUME 85.9 fL (75.5-95.3); MONOCYTES # (AUTO) 1.6 K/uL (2.0-10.0); MONOCYTES % (AUTO) 10.2 % (0.0-11.0); NEUTROPHILS # (AUTO) 12.2 K/uL (1.8-8.9); NEUTROPHILS % (AUTO) 76.1 % (38.5-71.5); PLATELET COUNT (AUTO) 374 K/uL (179-408); RED BLOOD CELL COUNT(AUTO) 4.14 MIL/uL (3.63-4.92)
[2017-10-11 06:58] LABS: CARBON DIOXIDE 27 mmol/L (21-32); CHLORIDE 102 mmol/L (98-107); GLUCOSE 74 mg/dL (74-106); POTASSIUM 2.9 mmol/L (3.5-5.1); UREA NITROGEN, BLOOD 7 mg/dL (7-18)
[2017-10-11] MEDS ORDERED: predniSONE 20 MG TABLET PO SCH (09:00)
[2017-10-11] MEDS: risperiDONE 0.5 MG TABLET PO SCH (09:33)
[2017-10-11] MEDS: ESCITALOPRAM OXALATE 10 MG TABLET PO SCH (09:34)
[2017-10-11] MEDS: FLUTICASONE/VILANTEROL 1 EACH BLST.W.DEV IH SCH (09:35)
[2017-10-11] MEDS: METOPROLOL TARTRATE 25 MG TABLET PO SCH ×2 (09:35→17:46)
[2017-10-11] MEDS: Z GUARD REMEDY PASTE 57 GM TUBE TOP SCH (09:36)
[2017-10-11] MEDS: POTASSIUM CHLORIDE 10 MEQ, LIDOCAINE-MPF 1% 1 ML in IV DEXTROSE 5% 100 ML IV SCH ×4 (11:36→17:50)
[2017-10-11 12:33] VITALS: BP 136/58
[2017-10-11] MEDS ORDERED: AMOX-430 PO (12:56)
[2017-10-11] MEDS ORDERED: METR500T PO (12:56)
[2017-10-11] MEDS ORDERED: PRED20TA PO (12:56)
[2017-10-11 17:46] VITALS: BP 122/52
== END 2017-10-11 19:10 | DRG 871 ==
LOC: TELE 20:25 → MED 10-08 13:50
PROVIDERS: ADMIT Nurse Practitioner Acute Care; ATTEND Internal Medicine
DX: A41.9 Sepsis, unspecified organism (principal); N17.0 Acute kidney failure with tubular necrosis; E87.1 Hypo-osmolality and hyponatremia; K80.10 Calculus of gallbladder with chronic cholecystitis without obstruction; E87.2 Acidosis; F03.91 Unspecified dementia, unspecified severity, with behavioral disturbance; F33.3 Major depressive disorder, recurrent, severe with psychotic symptoms; N39.0 Urinary tract infection, site not specified; M80.88XA Other osteoporosis with current pathological fracture, vertebra(e), initial encounter for fracture; R45.851 Suicidal ideations; R65.20 Severe sepsis without septic shock; E66.9 Obesity, unspecified; E78.5 Hyperlipidemia, unspecified; E87.5 Hyperkalemia; I10 Essential (primary) hypertension; G89.29 Other chronic pain; I25.10 Atherosclerotic heart disease of native coronary artery without angina pectoris; J44.9 Chronic obstructive pulmonary disease, unspecified; E27.9 Disorder of adrenal gland, unspecified; F41.9 Anxiety disorder, unspecified; I71.4 Abdominal aortic aneurysm, without rupture; D73.5 Infarction of spleen; Z68.24 Body mass index [BMI] 24.0-24.9, adult; E86.1 Hypovolemia
CPT/HCPCS: 36415; 83605; 85025; 87086; 97116; 97530; A4663; J2001; J2543; J3480; J3490; J7030; J7040; J7060; J7512

== ENCOUNTER 2017-10-11 20:26 | Inpatient (IN) | payer MEDICARE, MEDICAID ==
[~2017-10-11] VITALS: Ht 157.5 cm; Wt 63.0 kg
--- NOTE | 2017-10-11 20:00 | NUR ---
72 Y.O. FEMALE, READMITTED TO MHU AFTER BEING ADMITTED IN MEDICAL SURGICAL UNIT FOR THE PAST 5 DAYS FOR SEPSIS. Pt IS NOW ON A 14 DAY HOLD FOR DANGER TO SELF AND GRAVELY DISABLED. ACCORDING TO THE HOLD, Pt IS DEPRESSED AND SUICIDAL, AND UNABLE TO PROVIDE SELF CARE. Pt WAS INITIALLY ADMITTED TO THIS MENTAL HEALTH UNIT DUE TO MAKING SUICIDAL STATEMENTS TO HER SISTER, ALLUDING TO A PLAN TO OVERDOSE ON PILLS. Pt WAS ALSO ADMITTED FOR A PREVIOUS SUICIDE ATTEMPT, IN WHICH SHE CUT HER FOREARM, ON 09/22/17. UPON FACE TO FACE ASSESSMENT, Pt DOES NOT EXHIBIT SIGNS OF DEPRESSION. Pt IS A/O X 3, AND COOPERATIVE WITH ASSESSMENT. Pt CURRENTLY DENIES BEING DEPRESSED AND IS EXHIBITING APPROPRIATE AFFECT AND MOOD DURING ASSESSMENT. Pt MAINTAINS GOOD EYE CONTACT, COMPLIANT WITH MEDS AND CARE STAFF. DENIES PAIN, NO DISTRESS NOTED. Pt STATES THAT SHE IS WILLING TO ACCEPT TREATMENT, AND GAVE VERBAL PERMISSION TO NOTIFY HER FAMILY OF ADMISSION TO MHU. Pt's SISTER WAS PRESENT DURING TIME OF ADMISSION. DR. PYLE AND DR. GE WERE BOTH NOTIFIED OF ADMISSION, ORDERS RECEIVED. Pt ORIENTED TO UNIT AND EDUCATED ON UNIT RULES. NO AGGRESSIVE BEHAVIORS NOTED.
[~2017-10-11 20:26] MED LIST changes: +ACET-2154 PO; +ALBU2.5V38 NEB; -ALBU8.5H8 IH; +AMOX-430 PO; +ESCI10TA55 PO; -FLUT1DIS28 IH; +LORA-258 PO; +MAG355OR18 PO; +MAGN400O6 PO; +METR500T PO; +PIPE3.379 IV; +PRED20TA PO; -PRED50TA PO; +RISP0.5T20 PO; +TEMA7.5C PO
[2017-10-11] MEDS ORDERED: MAGNESIUM HYDROXIDE 30 ML LIQUID UDC PO PRN (21:15)
[2017-10-11] MEDS ORDERED: ACETAMINOPHEN 325 MG TABLET PO PRN (21:15)
[2017-10-11] MEDS ORDERED: ALBUTEROL SULFATE 2.5 MG/3 ML NEBU NEB PRN (21:15)
[2017-10-11] MEDS ORDERED: TEMAZEPAM 7.5 MG CAPSULE PO PRN (22:15)
[2017-10-11] MEDS ORDERED: MAG HYDROX/AL HYDROX/SIMETH 30 ML LIQUID UDC PO PRN (22:15)
[2017-10-11] MEDS ORDERED: CLONAZEPAM 0.5 MG TABLET PO PRN (22:15)
[2017-10-11] MEDS: risperiDONE 0.25 MG TABLET PO SCH (23:08)
--- NOTE | 2017-10-12 03:31 | NUR ---
Pt WAS NOTED RESTLESS AND UNABLE TO GO BACK TO SLEEP. OFFERED AND GIVEN KLONOPIN 0.5 MG PO PRN FOR RESTLESSNESS. WILL MONITOR Pt BEHAVIOR CLOSELY THROUGHOUT SHIFT.
[2017-10-12] MEDS ORDERED: Z GUARD REMEDY PASTE 57 GM TUBE TOP PRN (06:15)
[2017-10-12 07:30] VITALS: BP_SYST 130; BP_SYST 171; BP_DIAS 76; BP_DIAS 84
[2017-10-12 07:52] LABS: CARBON DIOXIDE 30 mmol/L (21-32); CHLORIDE 101 mmol/L (98-107); GLUCOSE 80 mg/dL (74-106); POTASSIUM 3.7 mmol/L (3.5-5.1); UREA NITROGEN, BLOOD 12 mg/dL (7-18)
[2017-10-12] MEDS: predniSONE 20 MG TABLET PO SCH (07:58)
[2017-10-12] MEDS: METRONIDAZOLE 500 MG TABLET PO SCH ×3 (07:59→16:10)
[2017-10-12] MEDS: risperiDONE 0.25 MG TABLET PO SCH ×2 (07:59→20:41)
[2017-10-12] MEDS: METOPROLOL TARTRATE 25 MG TABLET PO SCH ×2 (07:59→16:25)
[2017-10-12] MEDS: ESCITALOPRAM OXALATE 10 MG TABLET PO SCH (08:00)
[2017-10-12] MEDS: FLUTICASONE/VILANTEROL 1 EACH BLST.W.DEV IH SCH (08:01)
[2017-10-12] MEDS ORDERED: ESCITALOPRAM OXALATE 10 MG TABLET PO SCH (09:00)
[2017-10-12] MEDS: Z GUARD REMEDY PASTE 57 GM TUBE TOP SCH ×3 (09:00→20:41)
[2017-10-12] MEDS ORDERED: AMOXICILLIN-CLAVUL 875-125MG TABLET PO SCH (09:00)
[2017-10-12] MEDS: AMOXICILLIN-CLAVUL 875-125MG TABLET PO SCH ×2 (11:12→20:41)
[2017-10-12 13:00] VITALS: BP 113/55
[2017-10-12 15:01] VITALS: BP 115/77
[2017-10-12] MEDS: HYDROCODONE/APAP 5-325MG TABLET PO PRN (16:10)
--- NOTE | 2017-10-12 17:00 | NUR ---
PATIENT RESTING QUIET IN ROOM COOPERATE WELL NO ACUTE DISTRESS ,PAIN UNDER CONTROL NO S/I OR HALLUCIANATION SAFETY MEASURE PROVIDED CALL RICH IN REACH
--- NOTE | 2017-10-12 19:30 | NUR ---
RECEIVED PATIENT IN HER ROOM SITTING IN HER BED. SHE IS NOTED A/O X 3, ABLE TO AMBULATE WITH STEADY GAIT. SHE IS NOTED WITH LOW MOOD, BLUNTED AFFECT, DENIES SI OR PLAN TO HARM SELF. SHE STATED, "I WILL GO WHEN IS MY TIME." PATIENT IS ABLE TO CFS. CONTINUE COMPLIANT WITH MEDICATION REGIMENT AT THIS TIME. SAFETY EMPHASIS. BED AT LOWEST POSITION WITH WHEELS LOCKED, BED ALARM ON AND FREQUENT HEAD CHECKS.
[2017-10-12 20:00] VITALS: BP 144/64
--- NOTE | 2017-10-13 07:20 | NUR ---
RECEIVED REPORT FROM TERADATA DEVELOPER. PATIENT IN BED ASLEEP. A AND O X 2-3. NO DISTRESS NOTED. ON ORAL ATB AUGMENTIN Q12. RIGHT FOREARM SWELLING NOTED BUT RESOLVING. REDNESS ON BUTTOCKS NOTED, TX W/ JOSE ALBERTOARD. COOPERATIVE WITH CARE AND COMPLIANT WITH MEDICATIONS. DENIES SI AT THIS TIME. COMFORT MEASURES PROVIDED. SAFETY PRECS OBSERVED AT ALL TIMES. WILL CONTINUE TO MONITOR CLOSELY.
[2017-10-13 07:30] VITALS: BP 165/82
[2017-10-13] MEDS: FLUTICASONE/VILANTEROL 1 EACH BLST.W.DEV IH SCH (08:18)
[2017-10-13] MEDS: AMOXICILLIN-CLAVUL 875-125MG TABLET PO SCH (08:18)
[2017-10-13] MEDS: ESCITALOPRAM OXALATE 10 MG TABLET PO SCH (08:19)
[2017-10-13] MEDS: risperiDONE 0.25 MG TABLET PO SCH ×2 (08:19→21:36)
[2017-10-13] MEDS: predniSONE 20 MG TABLET PO SCH (08:19)
[2017-10-13] MEDS: METRONIDAZOLE 500 MG TABLET PO SCH ×2 (08:19→12:08)
[2017-10-13] MEDS: METOPROLOL TARTRATE 25 MG TABLET PO SCH ×2 (08:19→16:11)
[2017-10-13] MEDS: Z GUARD REMEDY PASTE 57 GM TUBE TOP SCH (08:20)
[2017-10-13] MEDS ORDERED: IPRATROPIUM BROMIDE 0.5 MG/2.5 ML NEBU NEB PRN (13:15)
[2017-10-13 15:51] VITALS: BP 125/84
--- NOTE | 2017-10-13 18:08 | NUR ---
PATIENT IS A SMOKER, STATES SHE SMOKES LESS THAN HALF A PACK A DAY. OFFERED FOR NICOTINE PATCH TO BE ORDERED. PATIENT REFUSED, SAYING "AFTER I GET OUT OUT OF HERE I'M JUST GONNA START ALL OVER AGAIN" WILL CONTINUE TO MONITOR.
--- NOTE | 2017-10-13 18:16 | NUR ---
PATIENT RECEIVED ON BED AWAKE, A AND O X 2-3, NO DISTRESS NOTED. REMAINS COOPERATIVE AND COMPLIANT WITH MEDS. ALL NEEDS ATTENDED AND ANTICIPATED WILL CONTINUE TO MONITOR CLOSELY.
[2017-10-13 20:14] VITALS: BP 141/50
[2017-10-14 08:00] VITALS: BP 123/46
[2017-10-14] MEDS: risperiDONE 0.25 MG TABLET PO SCH ×2 (08:33→21:50)
[2017-10-14] MEDS: predniSONE 20 MG TABLET PO SCH (08:33)
[2017-10-14] MEDS: FLUTICASONE/VILANTEROL 1 EACH BLST.W.DEV IH SCH (08:33)
[2017-10-14] MEDS: ESCITALOPRAM OXALATE 10 MG TABLET PO SCH (08:33)
[2017-10-14] MEDS: METOPROLOL TARTRATE 25 MG TABLET PO SCH ×2 (08:33→16:42)
[2017-10-14 08:42] LABS: BASOPHILS # (AUTO) 0.1 K/uL (0.0-8.0); BASOPHILS % (AUTO) 0.8 % (0.0-2.0); EOSINOPHILS # (AUTO) 0.2 K/uL (0.0-0.7); EOSINOPHILS % (AUTO) 1.1 % (0.0-7.0); HEMATOCRIT 33.9 % (31.2-41.9); HEMOGLOBIN 11.7 g/dL (10.9-14.3); LYMPHOCYTES # (AUTO) 2.4 K/uL (20.0-40.0); LYMPHOCYTES % (AUTO) 13.5 % (20.5-51.5); MEAN CORPUSCULAR HEMOGLOBIN 29.8 uug (24.7-32.8); MEAN CORPUSCULAR HGB CONC 35 g/dL (32.3-35.6); MEAN CORPUSCULAR VOLUME 86.3 fL (75.5-95.3); MONOCYTES # (AUTO) 1.6 K/uL (2.0-10.0); MONOCYTES % (AUTO) 8.7 % (0.0-11.0); NEUTROPHILS # (AUTO) 13.7 K/uL (1.8-8.9); NEUTROPHILS % (AUTO) 75.9 % (38.5-71.5); PLATELET COUNT (AUTO) 368 K/uL (179-408); RED BLOOD CELL COUNT(AUTO) 3.93 MIL/uL (3.63-4.92); WHITE BLOOD COUNT (AUTO) 18.1 K/uL (3.8-11.8)
[2017-10-14 08:56] LABS: ALANINE AMINOTRANSFERASE 21 U/L (14-59); ALKALINE PHOSPHATASE 71 U/L (50-136); ASPARTATE AMINOTRANSFERASE 14 U/L (15-37); BILIRUBIN,TOTAL 0.3 mg/dL (0.2-1.0); CARBON DIOXIDE 30 mmol/L (21-32); CHLORIDE 101 mmol/L (98-107); GLUCOSE 80 mg/dL (74-106); MAGNESIUM 1.9 mg/dL (1.8-2.4); PHOSPHOROUS 2.7 mg/dL (2.5-4.9); POTASSIUM 3.4 mmol/L (3.5-5.1); TOTAL PROTEIN, SERUM 6.2 g/dL (6.4-8.2); UREA NITROGEN, BLOOD 15 mg/dL (7-18)
--- NOTE | 2017-10-14 11:13 | NUR ---
Meat Supervisor: I have reviewed this patient's psychosocial dated 09/23/2017 and I can attest to the accuracy of the information therein. There have been no changes since her last assessment. Patient is alert and oriented x2. Patient is still depressed with a congruent affect. Patient is cooperative and pleasant. Patient denies having current suicidal/homicidal ideations. Patient denies auditory and visual hallucinations. Patient's judgment and impulse control are impaired. Her insight appears limited.
--- NOTE | 2017-10-14 11:36 | NUR ---
Gps/Supervisor Garage- Smiles and interacts fairly well with the staff, making her needs known, compliant with her routine am. meds, needed prompting . Denies any. S.I.
[2017-10-14] MEDS ORDERED: POTASSIUM CHLORIDE 20 MEQ TAB.PRT.SR PO ONE (13:45)
--- NOTE | 2017-10-14 13:47 | NUR ---
Gps/Kit Assembler- Rosalva Pang INSPECTING ENGINEER was called and informed of K+ 3.4, as well as WBC 18.1, orders received.
[2017-10-14 16:00] VITALS: BP 100/75
[2017-10-14 20:14] VITALS: BP 116/47
[2017-10-15 07:30] VITALS: BP 150/60
[2017-10-15] MEDS: predniSONE 20 MG TABLET PO SCH (08:32)
[2017-10-15] MEDS: risperiDONE 0.25 MG TABLET PO SCH ×2 (08:32→20:52)
[2017-10-15] MEDS: ESCITALOPRAM OXALATE 10 MG TABLET PO SCH (08:32)
[2017-10-15] MEDS: METOPROLOL TARTRATE 25 MG TABLET PO SCH ×2 (08:33→17:16)
[2017-10-15] MEDS: FLUTICASONE/VILANTEROL 1 EACH BLST.W.DEV IH SCH (08:33)
[2017-10-15 12:50] LABS: *BILIRUBIN,URIN NEGATIVE (NEGATIVE); *BLOOD, URINE NEGATIVE (NEGATIVE); *COLOR,URINE YELLOW (YELLOW); *KETONES,URINE NEGATIVE (NEGATIVE); *PROTEIN,URINE NEGATIVE (NEGATIVE); *UROBILINOGEN,URINE 0.2 E.U./dl (NORMAL); LEUKOCYTE ESTERASE ,URINE 1+ (NEGATIVE); NITRITE, URINE NEGATIVE (NEGATIVE); PH,URINE 5.5 (5.0-8.0); UGLUCOSE NEGATIVE (NEGATIVE)
[2017-10-15 13:30] LABS: *CLARITY,URINE SLIGHTLY HAZY (CLEAR)
[2017-10-15 13:33] LABS: BACTERIA,URINE NONE SEEN /HPF (NONE SEEN); RBC,URINE 0-3 /HPF (0-3); SQUAMOUS EPITHELIAL CELL,UR FEW /HPF (NONE SEEN)
[2017-10-15 13:34] LABS: CALCIUM OXALATE CRYSTALS,UR FEW /HPF (NONE SEEN)
[2017-10-15 15:34] VITALS: BP 142/59
--- NOTE | 2017-10-15 17:50 | NUR ---
Gps/Group Marketing Vp- Admitted from ER via wheel chair, alert, oriented, pleasant, Chief complaints of major depression. and S.I. Cooperative during his admission, Psychiatrist Dr Queen was notified. Routine admission care done. Addendum: 10/15/17 at 1940 by JEANMARIE LAZO LVN Wrong patient
[2017-10-15 21:27] VITALS: BP 124/51
[2017-10-16 07:30] VITALS: BP 121/40
[2017-10-16] MEDS: risperiDONE 0.25 MG TABLET PO SCH ×2 (08:33→21:10)
[2017-10-16] MEDS: ESCITALOPRAM OXALATE 10 MG TABLET PO SCH (08:34)
[2017-10-16] MEDS: FLUTICASONE/VILANTEROL 1 EACH BLST.W.DEV IH SCH (08:34)
[2017-10-16] MEDS: predniSONE 20 MG TABLET PO SCH (08:34)
[2017-10-16] MEDS: METOPROLOL TARTRATE 25 MG TABLET PO SCH ×2 (08:34→17:44)
--- NOTE | 2017-10-16 13:01 | NUR ---
Gps/Senior Underwriting Assistant- Encouraged participation in her group therapy, stays in her room most of the time. Encouraged to verbalized needs.Safety reviewed and emphasized
[2017-10-16] MEDS ORDERED: NYSTATIN CREAM 30 GM TUBE TOP SCH (14:00)
[2017-10-16 15:22] VITALS: BP 64/51
[2017-10-16] MEDS: NYSTATIN CREAM 30 GM TUBE TOP SCH ×2 (17:43→22:08)
[2017-10-16 20:00] VITALS: BP 120/53
--- NOTE | 2017-10-17 00:57 | NUR ---
RECEIVED PATIENT IN BED AWAKE. PLEASANT UPON APPROACH. DENIES SI/HI.ISOLATIVE BUT COOPERATIVE WITH HER MEDS AND CARE.REDNESS AND EXCORIATION OF THE GROIN AREA TREATED WITH NYSTATIN CREAM.DENIES PAIN OR DISCOMFORT. WILL CONTINUE TO MONITOR
[2017-10-17] MEDS: HYDROCODONE/APAP 5-325MG TABLET PO PRN (03:35)
[2017-10-17 07:27] LABS: BASOPHILS # (AUTO) 0.1 K/uL (0.0-8.0); BASOPHILS % (AUTO) 0.5 % (0.0-2.0); EOSINOPHILS # (AUTO) 0.3 K/uL (0.0-0.7); EOSINOPHILS % (AUTO) 2.1 % (0.0-7.0); HEMATOCRIT 32.1 % (31.2-41.9); HEMOGLOBIN 10.7 g/dL (10.9-14.3); LYMPHOCYTES # (AUTO) 2.2 K/uL (20.0-40.0); MEAN CORPUSCULAR HEMOGLOBIN 29.1 uug (24.7-32.8); MEAN CORPUSCULAR HGB CONC 33 g/dL (32.3-35.6); MEAN CORPUSCULAR VOLUME 87.4 fL (75.5-95.3); MONOCYTES # (AUTO) 1.8 K/uL (2.0-10.0); MONOCYTES % (AUTO) 11.9 % (0.0-11.0); NEUTROPHILS # (AUTO) 10.4 K/uL (1.8-8.9); NEUTROPHILS % (AUTO) 70.5 % (38.5-71.5); PLATELET COUNT (AUTO) 303 K/uL (179-408); RED BLOOD CELL COUNT(AUTO) 3.67 MIL/uL (3.63-4.92); WHITE BLOOD COUNT (AUTO) 14.8 K/uL (3.8-11.8)
[2017-10-17 07:30] VITALS: BP 134/60
--- NOTE | 2017-10-17 07:46 | NUR ---
SLEPT FOR APPROX. 7 HRS..WOKE UP AND REQUESTED A PAIN PILL. SAME GIVEN WITH GOOD EFFECT.
[2017-10-17 07:54] LABS: ALANINE AMINOTRANSFERASE 23 U/L (14-59); ALKALINE PHOSPHATASE 61 U/L (50-136); ASPARTATE AMINOTRANSFERASE 15 U/L (15-37); BILIRUBIN,TOTAL 0.3 mg/dL (0.2-1.0); CARBON DIOXIDE 31 mmol/L (21-32); CHLORIDE 101 mmol/L (98-107); CREATININE 0.9 mg/dL (0.6-1.3); GLUCOSE 76 mg/dL (74-106); POTASSIUM 4.4 mmol/L (3.5-5.1); TOTAL PROTEIN, SERUM 5.7 g/dL (6.4-8.2); UREA NITROGEN, BLOOD 19 mg/dL (7-18)
[2017-10-17] MEDS: risperiDONE 0.25 MG TABLET PO SCH ×2 (08:49→21:53)
[2017-10-17] MEDS: predniSONE 10 MG TABLET PO SCH (08:49)
[2017-10-17] MEDS: ESCITALOPRAM OXALATE 10 MG TABLET PO SCH (08:49)
[2017-10-17] MEDS: FLUTICASONE/VILANTEROL 1 EACH BLST.W.DEV IH SCH (08:49)
[2017-10-17] MEDS: METOPROLOL TARTRATE 25 MG TABLET PO SCH ×2 (08:49→17:00)
[2017-10-17] MEDS: NYSTATIN CREAM 30 GM TUBE TOP SCH ×2 (08:50→21:53)
--- NOTE | 2017-10-17 11:30 | NUR ---
PATIENT NOTED RESTING IN BED, AROUSES EASILY, NO COMPLAINTS OF PAIN, TOOK ALL AM MEDICATIONS, NO THOUGHTS VERBALIZED TO HURT SELF OR OTHERS, NO BEHAVIORS NOTED AT THIS TIME
[2017-10-17 15:36] VITALS: BP 113/50
--- NOTE | 2017-10-17 19:00 | NUR ---
No behaviors noted this shift, took all medications this shift, evening metoprolol held due to low blood pressure of 113/50, 82, all needs at this time, will give shift report to night nurse
[2017-10-17 20:50] VITALS: BP 145/60
[2017-10-18 07:30] VITALS: BP 145/51
--- NOTE | 2017-10-18 07:32 | NUR ---
GPS/NSG PATIENT SLEPT A TOTAL OF SEVEN HOURS, PATIENT CONTINUES TO REQUIRE OBSERVATION FOR SAFETY. LAST OBSERVED AWAKE IN ROOM.
[2017-10-18] MEDS: predniSONE 10 MG TABLET PO SCH (08:30)
[2017-10-18] MEDS: risperiDONE 0.25 MG TABLET PO SCH ×2 (08:30→21:17)
[2017-10-18] MEDS: ESCITALOPRAM OXALATE 10 MG TABLET PO SCH (08:30)
[2017-10-18] MEDS: NYSTATIN CREAM 30 GM TUBE TOP SCH ×2 (08:31→21:17)
[2017-10-18] MEDS: METOPROLOL TARTRATE 25 MG TABLET PO SCH ×2 (08:34→16:48)
[2017-10-18] MEDS: FLUTICASONE/VILANTEROL 1 EACH BLST.W.DEV IH SCH (08:42)
[2017-10-18 16:01] VITALS: BP 120/44
[2017-10-18 19:30] VITALS: BP 122/50
[2017-10-18] MEDS: HYDROCODONE/APAP 5-325MG TABLET PO PRN (21:17)
--- NOTE | 2017-10-18 22:00 | NUR ---
received to care, lying in bed, calm and pleasant upon approach. compliant with medications and staff direction. as of 2200, she appears to be asleep. no distress noted. will continue to monitor closely.
--- NOTE | 2017-10-19 06:00 | NUR ---
slept 6.25 hours.
[2017-10-19 07:30] VITALS: BP 171/67
[2017-10-19] MEDS: METOPROLOL TARTRATE 25 MG TABLET PO SCH ×2 (08:16→16:20)
[2017-10-19] MEDS: risperiDONE 0.25 MG TABLET PO SCH (08:16)
[2017-10-19] MEDS: predniSONE 10 MG TABLET PO SCH (08:17)
[2017-10-19] MEDS: FLUTICASONE/VILANTEROL 1 EACH BLST.W.DEV IH SCH (08:19)
[2017-10-19] MEDS: NYSTATIN CREAM 30 GM TUBE TOP SCH (08:19)
--- NOTE | 2017-10-19 08:34 | NUR ---
DC Note: Patient will be discharged to [facility] [[address] [place] [address]; ] via ambulance. LUIS spoke with patient's son Carl Weaver [[phone]] who is aware and agreeable to discharge plans. Patient is aware and agreeable to discharge plans. Patient denies SI and HI. LUIS spoke with Venkata at [facility] who confirmed they can accept patient at the facility today. Patient will follow up with Dr. Segundo (Operator Specialist Communications) and Dr. Grady (Psychiatrist) at the facility. Patient was provided smoking cessation referrals for [place] [employer] [id number] and [place] [phone].
[2017-10-19] MEDS ORDERED: ESCITALOPRAM OXALATE 10 MG TABLET PO SCH (09:00)
--- NOTE | 2017-10-19 13:00 | NUR ---
GPS.RN- CONTACTED FACILITY TO GIVE REPORT. LEFT MESSAGE FOR CALLBACK NURSE UNAVAILABLE
--- NOTE | 2017-10-19 13:16 | NUR ---
GPS.RN- SPOKE TO ELINA, TREATMENT NURSE AT FACILITY, NO BED AVAILABLE FOR PATIENT UNTIL AFTER 5PM. UNABLE TO ACCEPT PATIENT AT THIS TIME. CONTACTED MED RESPONSE TO CHANGE NUMERICAL TOOL PROGRAMMER TIME . TRIP #[id number] CHANGED FOR 5PM.
[2017-10-19 14:20] VITALS: BP 111/58
[2017-10-19 16:20] VITALS: BP 111/58
--- NOTE | 2017-10-19 17:00 | NUR ---
GPS/RN- Patient alert and oriented to self today and place. compliant with meds and care, denies any suicidal ideation. able to cooperative informed of discharge today educated on adls and care, compliance. suicidal ideation, verbalizing feelings. no harm to self during stay, stable. Patient will be discharged to [facility] [[address] [place] [address]; ] via ambulance. Patient will follow up with Dr. Segundo (Airport Representative) and Dr. Grady (Psychiatrist) at the facility.
--- NOTE | 2017-10-19 17:20 | NUR ---
discharge in stable condition
== END 2017-10-19 17:20 | DRG 885 ==
LOC: GPSOV1 20:26 → GPS 21:38
PROVIDERS: ADMIT Psychiatry & Neurology Psychiatry; ATTEND Nurse Practitioner Acute Care
DX: F33.3 Major depressive disorder, recurrent, severe with psychotic symptoms (principal); F03.91 Unspecified dementia, unspecified severity, with behavioral disturbance; M80.00XA Age-related osteoporosis with current pathological fracture, unspecified site, initial encounter for fracture; F10.21 Alcohol dependence, in remission; G89.29 Other chronic pain; Z91.5 Personal history of self-harm; E78.5 Hyperlipidemia, unspecified; J44.9 Chronic obstructive pulmonary disease, unspecified; S32.2XXD Fracture of coccyx, subsequent encounter for fracture with routine healing; X58.XXXD Exposure to other specified factors, subsequent encounter; K80.20 Calculus of gallbladder without cholecystitis without obstruction; I71.4 Abdominal aortic aneurysm, without rupture; I70.8 Atherosclerosis of other arteries; M54.5 Low back pain; I10 Essential (primary) hypertension; T38.0X5A Adverse effect of glucocorticoids and synthetic analogues, initial encounter; Y92.239 Unspecified place in hospital as the place of occurrence of the external cause; D72.829 Elevated white blood cell count, unspecified; R94.8 Abnormal results of function studies of other organs and systems; F41.9 Anxiety disorder, unspecified; Z72.0 Tobacco use; Z79.899 Other long term (current) drug therapy
CPT/HCPCS: 36415; 71045; 83735; 84100; 85025; 87086; 97110; 97116; 97530; J7512